=== PATIENT | male | born 1985 | race Caucasian/White ===

== ENCOUNTER → 2019-07-19 | Outpatient (CLI) | payer OTHER ==
[~2019-07-19] MED LIST: CYCL10 PO; ESCI20 PO; ESOM20 PO; HYDACE5 PO; IBUP800 PO; METPHE10 PO; MIRT30 PO; OMEP20ER PO; OXYACE5T PO; PROM25 PO; RXOXYACE PO; SERT25 PO; TRAM50; TRAM50 PO; Zofran Odt4 MG SL; Zofran Odt8 MG SL
[2019-07-19 18:53] LABS: BASOPHILS ABSOLUTE AUTO 0.02 K/mm3 (0.00-0.23); BASOPHILS PERCENT AUTO 0 % (0-2); EOSINOPHILS ABSOLUTE AUTO 0.02 K/mm3 (0.00-0.68); EOSINOPHILS PERCENT AUTO 0 % (0-6); Hematocrit 33.6 % (37.0-53.0); Hemoglobin 12.3 g/dL (13.5-17.5); IMMATURE GRAN ABSOLUTE AUTO 0.01 K/mm3 (0.00-0.10); IMMATURE GRAN PERCENT AUTO 0 % (0-1); LYMPHOCYTES ABSOLUTE AUTO 1.56 K/mm3 (0.84-5.20); LYMPHOCYTES PERCENT AUTO 28 % (21-46); MONOCYTES ABSOLUTE AUTO 0.22 K/mm3 (0.16-1.47); MONOCYTES PERCENT AUTO 4 % (4-13); Mean Corpuscular HGB 42.1 pg (26.0-34.0); Mean Corpuscular HGB Conc 36.6 g/dL (31.5-36.5); Mean Corpuscular Volume 115 fL (80-100); Mean Platelet Volume 11.1 fL (9.1-12.4); NEUTROPHILS ABSOLUTE AUTO 3.82 K/mm3 (1.96-9.15); NEUTROPHILS PERCENT AUTO 68 % (41-73); NRBC ABSOLUTE 0.02 K/mm3 (0.00-0.02); NRBC Auto 0.4 /100 WBC (0.0-0.2); Platelet Count 223 K/mm3 (150-400); RDW Coefficient Variation 11.8 % (11.7-14.2); RDW Standard Deviation 49.9 fL (35.1-46.3); Red Blood Cell Count 2.92 M/mm3 (4.30-5.90); White Blood Cell Count 5.65 K/mm3 (4.00-11.30)
== END ==
LOC: LAB SHORT 18:49 → LAB EV 18:49
PROVIDERS: Physician Assistant
DX: E86.0 Dehydration (principal)
CPT/HCPCS: 85025; 87086

== ENCOUNTER → 2020-06-26 | Outpatient (CLI) | payer OTHER | LOC: LAB SHORT 15:16 → PLD 15:16 | DX: D48.5 Neoplasm of uncertain behavior of skin (principal) | CPT/HCPCS: 88305 ==

== ENCOUNTER 2023-06-19 12:03 | Emergency (ER) | payer OTHER ==
[~2023-06-19] VITALS: Ht 182.9 cm; Wt 65.8 kg
[2023-06-19 12:44] LABS: BASOPHILS ABSOLUTE AUTO 0.03 K/mm3 (0.00-0.23); BASOPHILS PERCENT AUTO 0 % (0-2); EOSINOPHILS ABSOLUTE AUTO 0.02 K/mm3 (0.00-0.68); EOSINOPHILS PERCENT AUTO 0 % (0-6); Hematocrit 36.2 % (37.0-53.0); Hemoglobin 12.7 g/dL (13.5-17.5); IMMATURE GRAN ABSOLUTE AUTO 0.04 K/mm3 (0.00-0.10); IMMATURE GRAN PERCENT AUTO 0 % (0-1); LYMPHOCYTES ABSOLUTE AUTO 2.84 K/mm3 (0.84-5.20); LYMPHOCYTES PERCENT AUTO 28 % (21-46); MONOCYTES ABSOLUTE AUTO 0.47 K/mm3 (0.16-1.47); MONOCYTES PERCENT AUTO 5 % (4-13); Mean Corpuscular HGB 35.2 pg (26.0-34.0); Mean Corpuscular HGB Conc 35.1 g/dL (31.5-36.5); Mean Corpuscular Volume 100 fL (80-100); Mean Platelet Volume 10.3 fL (9.1-12.4); NEUTROPHILS ABSOLUTE AUTO 6.78 K/mm3 (1.96-9.15); NEUTROPHILS PERCENT AUTO 67 % (41-73); NRBC ABSOLUTE 0.03 K/mm3 (0.00-0.02); NRBC Auto 0.3 /100 WBC (0.0-0.2); Platelet Count 246 K/mm3 (150-400); RDW Coefficient Variation 14.9 % (11.7-14.2); RDW Standard Deviation 55.2 fL (35.1-46.3); Red Blood Cell Count 3.61 M/mm3 (4.30-5.90); White Blood Cell Count 10.18 K/mm3 (4.00-11.30)
[2023-06-19 12:57] LABS: Albumin/Globulin Ratio 0.9 (0.8-1.8); Bilirubin, Total 0.3 mg/dL (0.1-1.0); Bun/Creatinine Ratio 6.9 (12.0-20.0); Calcium, Blood 8.5 mg/dL (8.5-10.1); Creatinine, Blood 0.58 mg/dL (0.60-1.20); Globulin, Blood 3.4 g/dL (2.2-4.0); Total Protein, Blood 6.4 g/dL (6.4-8.2)
[2023-06-19] MEDS ORDERED: ONDA4 PO (18:01)
[2023-06-19] MEDS ORDERED: CEPH500 PO (18:19)
[2023-06-19] MEDS ORDERED: Bactrim Ds Tab1 EACH PO (18:19)
[2023-06-19 18:45] VITALS: BP 127/75
== END 2023-06-19 18:46 | disposition home or self-care (01) ==
LOC: ER 12:03
PROVIDERS: Student in an Organized Health Care Education/Training Program
DX: L02.11 Cutaneous abscess of neck (principal); F17.210 Nicotine dependence, cigarettes, uncomplicated; M19.90 Unspecified osteoarthritis, unspecified site; Z88.5 Allergy status to narcotic agent
CPT/HCPCS: 10060; 70491; 80053; 85025; 87070; 87205; 96374-59; 96375-59; 99284-25; A9270; J1885; J2060; J2405; Q9967

== ENCOUNTER 2024-04-09 20:44 | Emergency (ER) | payer OTHER ==
[~2024-04-09] VITALS: Ht 182.9 cm; Wt 61.2 kg
[~2024-04-09 20:44] MED LIST changes: +Bactrim Ds Tab1 EACH PO; +CEPH500 PO; +ONDA4 PO
[2024-04-09 20:52] VITALS: BP 109/73
[2024-04-09 20:57] LABS: BASOPHILS ABSOLUTE AUTO 0.01 K/mm3 (0.00-0.23); BASOPHILS PERCENT AUTO 0 % (0-2); EOSINOPHILS ABSOLUTE AUTO 0.01 K/mm3 (0.00-0.68); EOSINOPHILS PERCENT AUTO 0 % (0-6); Hematocrit 26.9 % (37.0-53.0); Hemoglobin 9.7 g/dL (13.5-17.5); IMMATURE GRAN ABSOLUTE AUTO 0.11 K/mm3 (0.00-0.10); IMMATURE GRAN PERCENT AUTO 1 % (0-1); LYMPHOCYTES ABSOLUTE AUTO 0.46 K/mm3 (0.84-5.20); LYMPHOCYTES PERCENT AUTO 3 % (21-46); MONOCYTES ABSOLUTE AUTO 0.48 K/mm3 (0.16-1.47); MONOCYTES PERCENT AUTO 4 % (4-13); Mean Corpuscular HGB 39.3 pg (26.0-34.0); Mean Corpuscular HGB Conc 36.1 g/dL (31.5-36.5); Mean Corpuscular Volume 109 fL (80-100); Mean Platelet Volume 9.6 fL (9.1-12.4); NEUTROPHILS ABSOLUTE AUTO 12.34 K/mm3 (1.96-9.15); NEUTROPHILS PERCENT AUTO 92 % (41-73); Platelet Count 144 K/mm3 (150-400); RDW Coefficient Variation 13.9 % (11.7-14.2); RDW Standard Deviation 55.5 fL (35.1-46.3); Red Blood Cell Count 2.47 M/mm3 (4.30-5.90); White Blood Cell Count 13.41 K/mm3 (4.00-11.30)
[2024-04-09] MEDS ORDERED: Metoclopramide HCl 5MG / ML 2ML Vial IV ONE (21:05)
[2024-04-09] MEDS ORDERED: Lactated Ringer's 1,000 ML IV ONE (21:05)
[2024-04-09 21:25] LABS: Albumin, Blood 2.9 g/dL (3.4-5.0); Albumin/Globulin Ratio 1.3 (0.8-1.8); Bilirubin, Total 1.2 mg/dL (0.1-1.0); Bun/Creatinine Ratio 9.8 (12.0-20.0); Calcium, Blood 8.3 mg/dL (8.5-10.1); Creatinine, Blood 0.51 mg/dL (0.60-1.20); Globulin, Blood 2.3 g/dL (2.2-4.0); Magnesium, Blood 1.1 mg/dL (1.6-2.4); Potassium, Blood 3.3 mmol/L (3.5-5.5); Total Protein, Blood 5.2 g/dL (6.4-8.2)
[2024-04-09] MEDS ORDERED: Magnesium Sulf 2 GM/Water 50ML 50 ML IV ONE (21:40)
[2024-04-09 21:44] LABS: Influenza A, PCR NEGATIVE (NEGATIVE); Influenza B, PCR NEGATIVE (NEGATIVE); Resp Syncytial Virus, PCR NEGATIVE (NEGATIVE); SARS-Cov-2 (COVID-19) PCR, MMC NEGATIVE (NEGATIVE)
[2024-04-09] MEDS ORDERED: Potassium Chloride 20 MEQ/15 ML UDC PO ONE (21:50)
[2024-04-09] MEDS ORDERED: METO5A PO (22:07)
== END 2024-04-09 22:49 | disposition home or self-care (01) ==
LOC: ER 20:44
PROVIDERS: Student in an Organized Health Care Education/Training Program
DX: E86.0 Dehydration (principal); R11.2 Nausea with vomiting, unspecified; D72.829 Elevated white blood cell count, unspecified; D64.9 Anemia, unspecified; E87.6 Hypokalemia; E83.42 Hypomagnesemia; G47.00 Insomnia, unspecified; Z88.8 Allergy status to other drugs, medicaments and biological substances
CPT/HCPCS: 0241U; 80053; 83735; 85025; A9270; J2765; J3475; J7120

== ENCOUNTER 2024-04-11 07:13 | Emergency (ER) | payer OTHER ==
[~2024-04-11] VITALS: Ht 182.9 cm; Wt 59.0 kg
[~2024-04-11 07:13] MED LIST changes: +METO5A PO
[2024-04-11] MEDS ORDERED: Ondansetron HCl 2 MG / ML 2ML Vial IV ONE (07:25)
[2024-04-11] MEDS ORDERED: NS 1,000 ML IV SCH (07:40)
[2024-04-11 07:41] LABS: Magnesium, Blood 1.7 mg/dL (1.6-2.4)
[2024-04-11] MEDS ORDERED: FAMO20 PO (07:51)
[2024-04-11] MEDS ORDERED: VITAMIN D310 MC4 PO (07:52)
[2024-04-11 08:03] LABS: BASOPHILS ABSOLUTE AUTO 0.01 K/mm3 (0.00-0.23); BASOPHILS PERCENT AUTO 0 % (0-2); EOSINOPHILS ABSOLUTE AUTO 0.01 K/mm3 (0.00-0.68); EOSINOPHILS PERCENT AUTO 0 % (0-6); Hematocrit 29.8 % (37.0-53.0); Hemoglobin 10.3 g/dL (13.5-17.5); IMMATURE GRAN ABSOLUTE AUTO 0.04 K/mm3 (0.00-0.10); IMMATURE GRAN PERCENT AUTO 1 % (0-1); LYMPHOCYTES ABSOLUTE AUTO 0.78 K/mm3 (0.84-5.20); LYMPHOCYTES PERCENT AUTO 12 % (21-46); MONOCYTES ABSOLUTE AUTO 0.26 K/mm3 (0.16-1.47); MONOCYTES PERCENT AUTO 4 % (4-13); Mean Corpuscular HGB 38.6 pg (26.0-34.0); Mean Corpuscular HGB Conc 34.6 g/dL (31.5-36.5); Mean Corpuscular Volume 112 fL (80-100); Mean Platelet Volume 10.6 fL (9.1-12.4); NEUTROPHILS ABSOLUTE AUTO 5.31 K/mm3 (1.96-9.15); NEUTROPHILS PERCENT AUTO 83 % (41-73); Platelet Count 142 K/mm3 (150-400); RDW Coefficient Variation 14.1 % (11.7-14.2); RDW Standard Deviation 58.2 fL (35.1-46.3); Red Blood Cell Count 2.67 M/mm3 (4.30-5.90); White Blood Cell Count 6.41 K/mm3 (4.00-11.30)
[2024-04-11 08:06] LABS: Albumin, Blood 3.1 g/dL (3.4-5.0); Albumin/Globulin Ratio 1.1 (0.8-1.8); Bilirubin, Total 0.8 mg/dL (0.1-1.0); Bun/Creatinine Ratio 18.3 (12.0-20.0); Calcium, Blood 9.1 mg/dL (8.5-10.1); Creatinine, Blood 0.6 mg/dL (0.60-1.20); Globulin, Blood 2.9 g/dL (2.2-4.0); Potassium, Blood 3.9 mmol/L (3.5-5.5)
[2024-04-11 08:31] VITALS: BP 103/61
[2024-04-11] MEDS ORDERED: PHENERGAN25 MG PR (09:07)
[2024-04-11] MEDS ORDERED: propofoL 100 ML IV ONE (17:50)
[2024-04-11] MEDS ORDERED: ACET325 PO (20:31)
[2024-04-11] MEDS ORDERED: ALPR.25 PO (20:32)
[2024-04-11] MEDS ORDERED: MECL12.5 PO (20:34)
== END 2024-04-11 09:23 | disposition home or self-care (01) ==
LOC: ER 07:13
PROVIDERS: Emergency Medicine
DX: R11.2 Nausea with vomiting, unspecified (principal); R19.7 Diarrhea, unspecified; E83.119 Hemochromatosis, unspecified; F12.90 Cannabis use, unspecified, uncomplicated; F10.90 Alcohol use, unspecified, uncomplicated; F17.200 Nicotine dependence, unspecified, uncomplicated; Z88.5 Allergy status to narcotic agent; Z79.899 Other long term (current) drug therapy
CPT/HCPCS: 80053; 83735; 85025; J2405; J2704; J7030

== ENCOUNTER 2024-04-11 17:00 | Inpatient (IN) | payer OTHER ==
[~2024-04-11] VITALS: Ht 177.8 cm; Wt 70.2 kg
[2024-04-11] VITALS (16 sets, daily range): BP systolic 81–172; BP diastolic 53–123
[~2024-04-11 17:00] MED LIST changes: +FAMO20 PO; +PHENERGAN25 MG PR; +VITAMIN D310 MC4 PO
[2024-04-11 17:13] LABS: Calcium, Ionized (POC) 1.02 mmol/L (1.10-1.46); Chloride (POC) 103 mmol/L (98-108); Creatinine (POC) 0.6 mg/dL (0.8-1.3); Glucose (ISTAT POC) 154 mg/dL (70-99); Hemoglobin (POC) 9.5 g/dL (13.5-17.5); Potassium (POC) 4.9 mmol/L (3.5-5.5); Sodium (POC) 131 mmol/L (135-148); Total CO2 (POC) 18 mmol/L (21-32)
[2024-04-11 17:19] LABS: Base Excess Venous -7.1 mmol/L; Bicarbonate Venous 19.4 mmol/L (24.0-30.0); PCO2 Venous 22.4 mmHg (38-42); pH Blood Venous 7.47 (7.34-7.37)
[2024-04-11 18:02] LABS: Acetaminophen, Random 4.7 ug/mL (10.0-30.0); Alanine Aminotransfer (ALT/SGP 137 U/L (12-78); Albumin, Blood 2.7 g/dL (3.4-5.0); Albumin/Globulin Ratio 1.1 (0.8-1.8); Alk Phos 82 U/L (50-136); Anion Gap 20 mmol/L (3-11); Aspartate Aminotrans (AST/SGOT 144 U/L (12-37); Bilirubin, Total 0.5 mg/dL (0.1-1.0); Blood Urea Nitrogen 12 mg/dL (8-24); Bun/Creatinine Ratio 18.2 (12.0-20.0); CO2, Blood 18 mmol/L (21-32); Calcium, Blood 8.5 mg/dL (8.5-10.1); Chloride, Blood 101 mmol/L (98-108); Creatinine, Blood 0.66 mg/dL (0.60-1.20); Ethanol (Alcohol), Blood, Med <3 mg/dL; Globulin, Blood 2.4 g/dL (2.2-4.0); Glomerular Filtration Rate 122 (60-); Glucose, Blood 164 mg/dL (70-99); Potassium, Blood 4.9 mmol/L (3.5-5.5); Sodium, Blood 134 mmol/L (136-145); Total Protein, Blood 5.1 g/dL (6.4-8.2)
[2024-04-11] MEDS ORDERED: NS 1,000 ML IV SCH ×2 (18:30→22:00)
[2024-04-11 18:31] LABS: Source, Urine Foley catheter
[2024-04-11 18:31] LABS: BASOPHILS ABSOLUTE AUTO 0.04 K/mm3 (0.00-0.23); BASOPHILS PERCENT AUTO 0 % (0-2); EOSINOPHILS ABSOLUTE AUTO 0.01 K/mm3 (0.00-0.68); EOSINOPHILS PERCENT AUTO 0 % (0-6); Hematocrit 24.8 % (37.0-53.0); IMMATURE GRAN ABSOLUTE AUTO 0.19 K/mm3 (0.00-0.10); IMMATURE GRAN PERCENT AUTO 2 % (0-1); LYMPHOCYTES ABSOLUTE AUTO 1.01 K/mm3 (0.84-5.20); LYMPHOCYTES PERCENT AUTO 8 % (21-46); MONOCYTES PERCENT AUTO 2 % (4-13); Mean Corpuscular HGB 39.6 pg (26.0-34.0); Mean Corpuscular HGB Conc 36.3 g/dL (31.5-36.5); Mean Corpuscular Volume 109 fL (80-100); NEUTROPHILS ABSOLUTE AUTO 10.78 K/mm3 (1.96-9.15); NEUTROPHILS PERCENT AUTO 88 % (41-73); NRBC ABSOLUTE 0.06 K/mm3 (0.00-0.02); NRBC Auto 0.5 /100 WBC (0.0-0.2); RDW Coefficient Variation 14.1 % (11.7-14.2); RDW Standard Deviation 55.8 fL (35.1-46.3); Red Blood Cell Count 2.27 M/mm3 (4.30-5.90); White Blood Cell Count 12.33 K/mm3 (4.00-11.30)
[2024-04-11 18:39] LABS: Bilirubin, Urine Neg (Neg); Blood, Urine 3+ (Neg); Color, Urine Yellow (P-Yellow); Glucose Qualitative, Urine Neg (Neg); Ketones, Urine 2+ (Neg); Leukocyte Esterase, Urine Neg (Neg); Nitrite, Urine Neg (Neg); Protein, Urine 1+ (Neg); Urobilinogen, Urine 2+ (Normal); pH, Urine 6.5 (5.0-8.0)
[2024-04-11] MEDS ORDERED: Cefepime HCl 2,000 MG in NS 100 ML IV ONE (18:45)
[2024-04-11] MEDS ORDERED: Dextrose 50% 50 ML Vial ONE ×2 (19:05→19:36)
[2024-04-11] MEDS ORDERED: Ondansetron HCl 2 MG / ML 2ML Vial IV PRN (19:05)
[2024-04-11] MEDS ORDERED: Lactated Ringer's 1,000 ML IV SCH (19:05)
[2024-04-11 19:06] LABS: International Normalized Ratio 1.28; Prothrombin Time Results 13.4 Sec (9.7-11.5)
[2024-04-11 19:06] LABS: Appearance, Urine Hazy (Clear)
[2024-04-11 19:07] LABS: Bacteria Mod /hpf; Mucus Light (0-Heavy); Squamous Epithelial Cells Rare /hpf (Few); White Blood Cells, Urine 0-2 /hpf (0-5)
[2024-04-11 19:10] LABS: U Amphetamine Screen Not Detected; U Barbituate Screen Not Detected; U Benzodiazapine Screen DETECTED; U Buprenorphine Screen Not Detected; U Cannabinoids Screen DETECTED; U Cocaine Screen Not Detected; U Methadone Screen Not Detected; U Methamphetamine Screen Not Detected; U Opiates Screen Not Detected; U Oxycodone Screen Not Detected; U Phencyclidine Screen Not Detected
[2024-04-11] MEDS ORDERED: propofoL 100 ML IV SCH (19:10)
[2024-04-11] MEDS ORDERED: Cetylpyridinium Chloride 1 EA MISC MT SCH (19:10)
[2024-04-11] MEDS ORDERED: Vancomycin HCL 1,500 MG in NS 250 ML IV ONE (19:10)
[2024-04-11] MEDS ORDERED: Dextrose 10% 500 ML IV SCH (19:15)
[2024-04-11] MEDS ORDERED: Dextrose 10% 1,000 ML IV SCH (19:15)
[2024-04-11 19:40] LABS: Mean Platelet Volume 11.4 fL (9.1-12.4); Platelet Count 152 K/mm3 (150-400)
[2024-04-11] MEDS ORDERED: Azithromycin 500 MG in NS 250 ML IV SCH (20:00)
[2024-04-11] MEDS ORDERED: Folic Acid 1 MG in NS 50 ML IV SCH (20:00)
[2024-04-11] MEDS ORDERED: Thiamine HCl 500 MG in NS 100 ML IV SCH (20:00)
[2024-04-11] MEDS ORDERED: Dextrose 50% 50 ML Syringe IV ONE ×2 (20:05)
[2024-04-11] MEDS ORDERED: ACET325 PO (20:31)
[2024-04-11] MEDS ORDERED: ALPR.25 PO (20:32)
[2024-04-11] MEDS ORDERED: MECL12.5 PO (20:34)
[2024-04-11] MEDS ORDERED: Lactulose 20 GM/30 ML UDC PT SCH (21:00)
[2024-04-11] MEDS ORDERED: Lactulose 200 GM/300 ML Enema 300ML BTL PR SCH (21:00)
[2024-04-11 21:12] LABS: SARS-Cov-2 (COVID-19) PCR, MMC NEGATIVE (NEGATIVE)
[2024-04-11] MEDS ORDERED: Nicotine 14 MG PATCH TOP SCH (21:45)
[2024-04-11] MEDS ORDERED: Midazolam HCl 1MG / ML 2ML Vial IM ONE (21:45)
[2024-04-11] MEDS ORDERED: Etomidate 2MG / ML 10ML Vial IV ONE (21:45)
[2024-04-11] MEDS ORDERED: Rocuronium Bromide 10 MG/ML 5ML Injection IV ONE (21:45)
[2024-04-11 21:59] LABS: Percent Saturation 55.6 % (20.0-50.0)
[2024-04-11] MEDS ORDERED: Artificial Tear Opth Oint 3.5 GM BOTHEYES PRN (22:00)
[2024-04-11] MEDS ORDERED: CefTRIAXone Sodium 1,000 MG in NS 100 ML IV SCH (22:00)
[2024-04-11] MEDS ORDERED: Heparin Sodium,Porcine 5,000 UNIT/0.5 ML SDV SC SCH (22:00)
[2024-04-11] MEDS ORDERED: NS 1,000 ML IV ONE (22:05)
[2024-04-11] MEDS ORDERED: Albumin (Human) 25gm/100ml 100 ML IV SCH (22:05)
[2024-04-11] MEDS ORDERED: Albumin (Human) 25gm/100ml 100 ML IV ONE (22:05)
[2024-04-11] MEDS ORDERED: Pantoprazole Sodium 40 MG Injection IV SCH (23:00)
[2024-04-12] VITALS (92 sets, daily range): BP systolic 52–141; BP diastolic 28–117
[2024-04-12] MEDS ORDERED: Hydrogen Peroxide 1.5 % Solution MT SCH ×2
[2024-04-12] MEDS ORDERED: Morphine Sulfate 4 MG/1 ML Injection IV PRN (00:10)
[2024-04-12] MEDS ORDERED: Azithromycin 500 MG in NS 250 ML IV SCH (01:00)
[2024-04-12] MEDS ORDERED: NS 500 ML IV ONE ×3 (02:10→04:20)
--- NOTE | 2024-04-12 02:33 | NUR ---
ASSUMPTION OF CARE/BLOCK CHARTING 1944: PT TRANSFERRED TO ICU VIA ER GURNEY, TRANSITIONED TO ICU BED VIA SLIDER SHEET. PT INTUBATED AND SEDATED, PROPOFOL INFUSING AT 30MCG/KG/MIN ON ARRIVAL TO ICU, TITRATED DOWN TO 15MCG/KG/MIN. PT NOT RESPONSIVE TO NOXIOUS STIMULI, DOES NOT MAKE PURPOSEFUL MOVEMENTS. HR 145 SINUS, MAP >65. VENT SETTINGS AC/VC 18/500/5/30%, OXYGEN SATURATION >95%. ABDOMEN SOFT, BOWEL TONES ACTIVE, OG TUBE IN PLACE CLAMPED. TEMP MASSEY IN PLACE PATENT DRAINING YELLOW URINE TO GRAVITY. PIV IN PLACE TO RAC, LAC AND LEFT HAND. PTS MOTHER AT THE BEDSIDE. 2129: PT MOVING ARMS, WITHDRAWING FROM PAINFUL STIMULI, PT DOES NOT OPEN EYES OR FOLLOW COMMANDS WHEN PROMPTED. PROPOFOL INCREASED TO 30MCG/KG/MIN 2152: POWERGLIDE PLACED, PROPFOL INCREASED TO 50MCG/KG/MIN IN INCREMENTS OF 5MCG/KG/MIN FOR RESTLESSNESS DURING LINE PLACEMENT. TITRATED SLOWLY BACK DOWN AFTER LINE PLACEMENT D/T HYPOTENSION. PROPOFOL INFUSING AT 35MCG/KG/MIN 2204: DR. ROBLES TO THE BEDSIDE TO EVALUATE PATIENT, ORDERS RECEIVED. 214: CALL PLACED TO DR. HAYNES REGARDING PT BLOOD PRESSURE WITH MAP <65. ORDERS RECEIVED.
--- NOTE | 2024-04-12 03:36 | NUR ---
PT UPDATE 0254; CALL PLACED TO DR. IVY PRADO PT CONTINUED HYPOTENSION, ORDERS RECEIVED. 0302: LEVOPHED INITIATED AT 4MCG/MIN FOR MAP OF 60. 0329: LEVOPHED INCREASED BY REGIONAL RECRUITER FROM 4MCG/MIN TO 8MCG/MIN FOR MAP OF 58. CARE CONTINUES.
[2024-04-12 03:37] LABS: BASOPHILS ABSOLUTE AUTO 0.01 K/mm3 (0.00-0.23); BASOPHILS PERCENT AUTO 0 % (0-2); EOSINOPHILS PERCENT AUTO 0 % (0-6); Hematocrit 20.7 % (37.0-53.0); Hemoglobin 7.2 g/dL (13.5-17.5); IMMATURE GRAN ABSOLUTE AUTO 0.11 K/mm3 (0.00-0.10); IMMATURE GRAN PERCENT AUTO 2 % (0-1); LYMPHOCYTES ABSOLUTE AUTO 1.43 K/mm3 (0.84-5.20); LYMPHOCYTES PERCENT AUTO 21 % (21-46); MONOCYTES ABSOLUTE AUTO 0.36 K/mm3 (0.16-1.47); MONOCYTES PERCENT AUTO 5 % (4-13); Mean Corpuscular HGB 39.3 pg (26.0-34.0); Mean Corpuscular HGB Conc 34.8 g/dL (31.5-36.5); Mean Corpuscular Volume 113 fL (80-100); Mean Platelet Volume 10.2 fL (9.1-12.4); NEUTROPHILS PERCENT AUTO 72 % (41-73); NRBC ABSOLUTE 0.03 K/mm3 (0.00-0.02); NRBC Auto 0.4 /100 WBC (0.0-0.2); Platelet Count 105 K/mm3 (150-400); RDW Coefficient Variation 14.5 % (11.7-14.2); Red Blood Cell Count 1.83 M/mm3 (4.30-5.90); White Blood Cell Count 6.71 K/mm3 (4.00-11.30)
[2024-04-12 03:51] LABS: PO2 Arterial 143 mmHg (80-100)
[2024-04-12 03:52] LABS: PCO2 Arterial 19.9 mmHg (35-45)
[2024-04-12 03:55] LABS: Albumin/Globulin Ratio 1.6 (0.8-1.8); Bilirubin, Total 0.7 mg/dL (0.1-1.0); Bun/Creatinine Ratio 19.3 (12.0-20.0); Calcium, Blood 7.5 mg/dL (8.5-10.1); Creatinine, Blood 0.83 mg/dL (0.60-1.20); Globulin, Blood 1.9 g/dL (2.2-4.0); Magnesium, Blood 1.8 mg/dL (1.6-2.4); Phosphorus, Blood 3.5 mg/dL (2.5-4.9); Potassium, Blood 4.3 mmol/L (3.5-5.5); Total Protein, Blood 4.9 g/dL (6.4-8.2)
[2024-04-12] MEDS ORDERED: Dextrose 10% 1,000 ML IV SCH (04:30)
[2024-04-12] MEDS ORDERED: Vancomycin HCL 1,000 MG in NS 250 ML IV SCH (05:00)
--- NOTE | 2024-04-12 05:15 | NUR ---
SHIFT SUMMARY PT CONTINUES TO REST IN BED, INTUBATED AND SEDATED. PROPOFOL INFUSING AT 35MCG/MG/MIN, PRECEDEX INFUSING AT 1MCG/KG/HR. RASS -3, PT OCCASIONALLY MOVES UPPER EXTREMITIES, WITHDRAWS UPPER EXTREMITIES TO NOXIOUS STIMULI. PT DOES NOT OPEN EYES OR FOLLOW COMMANDS WHEN PROMPTED. HR 120-140'S SINUS, LEVOPHED INFUSING AT 10MCG/MIN TO MAINTAIN MAP >65. VENT SETTINGS AC/VC 18/450/5/30%, OXYGEN SATURATION >95%. ABDOMEN SOFT, BOWEL TONES HYPOACTIVE. TEMP MASSEY IN PLACE WITH YELLOW OUTPUT. NO BM THIS SHIFT, OG TUBE IN PLACE CLAMPED. PIV IN PLACE TO RAC, LAC AND LEFT HAND. POWERGLIDE IN PLACE TO JAN. D 10 INFUSING AT 75MLS/HR, NS INFUSING AT 150MLS/HR. BED IN LOWEST POSTION, PTS MOM AT THE BEDSIDE. CARE CONTINUES.
[2024-04-12] MEDS ORDERED: Pantoprazole Sodium 40 MG Injection IV SCH (06:00)
[2024-04-12] MEDS ORDERED: Cetylpyridinium Chloride 1 EA MISC MT SCH (08:00)
[2024-04-12] MEDS ORDERED: NS 250 ML IV SCH (08:05)
[2024-04-12] MEDS ORDERED: Multivitamins 1 Tab PT SCH (09:00)
[2024-04-12] MEDS ORDERED: Heparin Sodium,Porcine 5,000 UNIT/0.5 ML SDV SC SCH (09:00)
[2024-04-12] MEDS ORDERED: Ipratropium/Albuterol SulF 2.5-0.5MG/3 ML Amp INH SCH (10:45)
[2024-04-12] MEDS ORDERED: LORazepam 2 MG/ML 1ML Injection IV PRN (11:15)
[2024-04-12 12:41] LABS: BASOPHILS PERCENT AUTO 0 % (0-2); EOSINOPHILS PERCENT AUTO 0 % (0-6); Hematocrit 19.9 % (37.0-53.0); Hemoglobin 7.1 g/dL (13.5-17.5); IMMATURE GRAN ABSOLUTE AUTO 0.05 K/mm3 (0.00-0.10); IMMATURE GRAN PERCENT AUTO 1 % (0-1); LYMPHOCYTES ABSOLUTE AUTO 1.82 K/mm3 (0.84-5.20); LYMPHOCYTES PERCENT AUTO 35 % (21-46); MONOCYTES ABSOLUTE AUTO 0.29 K/mm3 (0.16-1.47); MONOCYTES PERCENT AUTO 6 % (4-13); Mean Corpuscular HGB 39.9 pg (26.0-34.0); Mean Corpuscular HGB Conc 35.7 g/dL (31.5-36.5); Mean Corpuscular Volume 112 fL (80-100); Mean Platelet Volume 10.9 fL (9.1-12.4); NEUTROPHILS ABSOLUTE AUTO 3.12 K/mm3 (1.96-9.15); NEUTROPHILS PERCENT AUTO 59 % (41-73); NRBC ABSOLUTE 0.04 K/mm3 (0.00-0.02); NRBC Auto 0.8 /100 WBC (0.0-0.2); Platelet Count 96 K/mm3 (150-400); RDW Coefficient Variation 14.6 % (11.7-14.2); RDW Standard Deviation 59.4 fL (35.1-46.3); Red Blood Cell Count 1.78 M/mm3 (4.30-5.90); White Blood Cell Count 5.28 K/mm3 (4.00-11.30)
--- NOTE | 2024-04-12 13:21 | NUR ---
REASSESSMENT PT CONTINUES ON SEDATION WHILE INTUBATED. HE HAD A PICC LINE PLACED THIS MORNING SO LEVOPHED HAS BEEN TITRATED UP TO KEEP MAP GREATER THAN 65. HR REMAINS ST WITH RATE IN THE 1 TEENS. SEDATION WAS DIFFICULT THIS MORNING WITH PT'S LOW BP, BUT PT'S MOTHER EMPHASIZED THAT COMFORT WAS A HIGH PRIORITY FOR HER AND PT. PT IS RESTING COMFORTABLY NOW. RR IS STILL IN THE 30S, BUT PT IS CALM AND BREATHING APPEARS LESS LABORED. LUNGS WERE VERY COARSE THIS MORNING, BUT HAVE CLEARED SINCE. ABDOMEN IS FIRM, DOESN'T APPEAR TO BE TENDER. BT HYPOACTIVE. OG HAD SCANT AMT OF LIGHT GREEN FLUID, BUT HAS BEEN CLAMPED FOR MOST OF THE MORNING FOR MEDICATIONS. MASSEY WITH YELLOW URINE. PT'S MOM HAS BEEN AT THE BEDSIDE AND UPDATED THROUGHOUT THE MORNING.
--- NOTE | 2024-04-12 17:18 | NUR ---
SHIFT SUMMARY PT REMAINED INTUBATED AND SEDATED THIS SHIFT. HE HAD A 45 MINUTES SEDATION VACATION THIS AFTERNOON DURING WHICH PT WOULD NOT RESPOND TO HIS COMMANDS. HE WAS MOVING ALL EXTREMITIES, BUT BECAME AGITATED SO SEDATION WAS RESTARTED. HIS R PUPIL WAS SLIGHTLY BIGGER THAN HIS L THIS MORNING, BUT THEY ARE EQUAL THIS AFTERNOON. LUNGS ARE CLEAR THIS AFTERNOON. SINUS TACH WITH RATE IN THE 1 TEENS. PT HAD FEVER WITH TMAX 100.9F THIS SHIFT, CURRENTLY DOWN TO 99.9F. ABDOMEN REMAINS DISTENDED, NO BM SO FAR THIS SHIFT. TUBE FEED STARTED AT 10ML/HR THIS EVENING. GLUCOSE UP TO 170S TUBE FEED WAS STARTED. SPOKE WITH DR. MARI AND RECEIVED ORDER TO TURN D10 DOWN TO 25ML/HR. PT'S MOTHER HAS REMAINED AT THE BEDSIDE THIS SHIFT AND HAS BEEN UPDATED.
[2024-04-12] MEDS ORDERED: CefTRIAXone Sodium 1,000 MG in NS 100 ML IV SCH (21:00)
[2024-04-12 21:01] LABS: Vancomycin, Trough 37.3 ug/mL (5.0-10.0)
--- NOTE | 2024-04-12 22:32 | NUR ---
ASSUMPTION OF CARE: I assumed care of pt at approximately 1900. Family was in room at the time. They advised of patient's typical pain level and that his bones and skin are very fragile. Also confirmed no compressions for pt. Pt is sedated with propofol and precedex and intubated. Cisse catheter in place draining to gravity without issue. Confirmed drip rates and lines with offgoing RN. SPO2 >95% and MAP >65.
[2024-04-13] VITALS (96 sets, daily range): BP systolic 85–124; BP diastolic 61–91
[2024-04-13 03:34] LABS: BASOPHILS ABSOLUTE AUTO 0.01 K/mm3 (0.00-0.23); BASOPHILS PERCENT AUTO 0 % (0-2); EOSINOPHILS PERCENT AUTO 0 % (0-6); Hematocrit 20.1 % (37.0-53.0); Hemoglobin 7.1 g/dL (13.5-17.5); IMMATURE GRAN ABSOLUTE AUTO 0.03 K/mm3 (0.00-0.10); IMMATURE GRAN PERCENT AUTO 1 % (0-1); LYMPHOCYTES ABSOLUTE AUTO 1.26 K/mm3 (0.84-5.20); LYMPHOCYTES PERCENT AUTO 33 % (21-46); MONOCYTES ABSOLUTE AUTO 0.19 K/mm3 (0.16-1.47); MONOCYTES PERCENT AUTO 5 % (4-13); Mean Corpuscular HGB 39.2 pg (26.0-34.0); Mean Corpuscular HGB Conc 35.3 g/dL (31.5-36.5); Mean Corpuscular Volume 111 fL (80-100); Mean Platelet Volume 10.4 fL (9.1-12.4); NEUTROPHILS ABSOLUTE AUTO 2.39 K/mm3 (1.96-9.15); NEUTROPHILS PERCENT AUTO 62 % (41-73); NRBC ABSOLUTE 0.03 K/mm3 (0.00-0.02); NRBC Auto 0.8 /100 WBC (0.0-0.2); Platelet Count 97 K/mm3 (150-400); RDW Coefficient Variation 14.5 % (11.7-14.2); Red Blood Cell Count 1.81 M/mm3 (4.30-5.90); White Blood Cell Count 3.88 K/mm3 (4.00-11.30)
[2024-04-13 03:46] LABS: PO2 Arterial 141 mmHg (80-100); pH Blood Arterial 7.33 (7.35-7.45)
[2024-04-13 03:52] LABS: International Normalized Ratio 1.45; Magnesium, Blood 1.7 mg/dL (1.6-2.4); Prothrombin Time Results 15.1 Sec (9.7-11.5)
[2024-04-13 03:53] LABS: Alanine Aminotransfer (ALT/SGP 498 U/L (12-78); Albumin/Globulin Ratio 1.7 (0.8-1.8); Alk Phos 67 U/L (50-136); Anion Gap 18 mmol/L (3-11); Aspartate Aminotrans (AST/SGOT 857 U/L (12-37); Bilirubin, Total 0.6 mg/dL (0.1-1.0); Blood Urea Nitrogen 15 mg/dL (8-24); Bun/Creatinine Ratio 11.8 (12.0-20.0); CO2, Blood 12 mmol/L (21-32); Calcium, Blood 7.7 mg/dL (8.5-10.1); Chloride, Blood 111 mmol/L (98-108); Creatinine, Blood 1.27 mg/dL (0.60-1.20); Globulin, Blood 1.8 g/dL (2.2-4.0); Glomerular Filtration Rate 74 (60-); Glucose, Blood 151 mg/dL (70-99); Phosphorus, Blood 1.2 mg/dL (2.5-4.9); Potassium, Blood 2.5 mmol/L (3.5-5.5); Sodium, Blood 138 mmol/L (136-145); Total Protein, Blood 4.8 g/dL (6.4-8.2); Vancomycin, Random 28.6 ug/mL
[2024-04-13] MEDS ORDERED: Potassium Phosphate Dibasic 30 MM in NS 500 ML IV ONE (04:55)
--- NOTE | 2024-04-13 05:38 | NUR ---
SHIFT SUMMARY: Pt remained sedated on Propofol and Precedex gtt throughout shift. Pt withdrew from stimuli during suction and bed bath, medicated per EMAR. Soft restraints still in place and needed, he pulls against them at times. Levophed is down to 6mcg/min with a MAP >70. Pt is in sinus rhythm with a rate in the 90's, improved from the tachycardia at the start of the shift. His SPO2 is 100% on vent. He has a patent powerglid and PICC with dressing changes to both during shift. Cisse cath is draining to gravity, appropriate urine output. Potassium phosphate is now infusing per low potassium, phos, and sodium. TF is @ 10ml/hr. Abdomen distended and firm, no BM during shift. Bowel tones are present.
[2024-04-13] MEDS ORDERED: Nystatin 100,000 Unit/GM CREAM 15 GM TOP SCH (09:25)
[2024-04-13] MEDS ORDERED: Miconazole Nitrate 2% 85 GM PWD TOP SCH (09:25)
[2024-04-13] MEDS ORDERED: Cefepime HCl 1,000 MG in NS 100 ML IV SCH (10:15)
[2024-04-13] MEDS ORDERED: Hydrocortisone Sod Succinate 100 MG Vial IV SCH (11:00)
[2024-04-13 12:37] LABS: Bun/Creatinine Ratio 11.2 (12.0-20.0); Calcium, Blood 8.2 mg/dL (8.5-10.1); Creatinine, Blood 1.07 mg/dL (0.60-1.20); Phosphorus, Blood 2.6 mg/dL (2.5-4.9); Potassium, Blood 2.7 mmol/L (3.5-5.5)
--- NOTE | 2024-04-13 12:43 | NUR ---
PT EXTUBATED.... PT EXTUBATED TO 2L NC AT 1245. PT'S VS STABLE AT THE TIME OF EXTUBATION.
[2024-04-13] MEDS ORDERED: Potassium Chl 10MEQ/Water100ML 100 ML IV SCH (13:30)
[2024-04-13 14:43] LABS: Vancomycin, Random 18.9 ug/mL
[2024-04-13 15:31] LABS: Vancomycin, Trough 18.4 ug/mL (5.0-10.0)
[2024-04-13] MEDS ORDERED: Vancomycin HCL 750 MG in NS 250 ML IV SCH (16:00)
--- NOTE | 2024-04-13 18:36 | NUR ---
Summary. Pt rested in bed this shift. Much improved. Extubated at 1245 to 2 L/NC, able to take oxygen off at 1430. Levophed titrated off this afternoon, see flowsheet. Pt alert, remains confused at times. Mother at bedside all shift. See chart for further details.
[2024-04-13] MEDS ORDERED: Lactobacil 2-S.Thermo-Bifido 1 1 Cap PT SCH (21:00)
--- NOTE | 2024-04-13 21:34 | NUR ---
ASSUMED CARE AT 1900 PATIENT IS ALERT AND ORIENTED TO SELF AND YEAR ONLY, NEEDS CONSTANT REORIENTATION. PATIENT HAVING HALLUCINATIONS AND SEEING PEOPLE IN HIS ROOM, AND CONSTANTLY PULLING AT THINGS. PRECEDEX STARTED. SP02 97% ON RA, DENIES SOB. HR ST 103, BP STABLE. TEMP MASSEY PATENT AND DRAINING TO GRAVITY. PATIENT REPOSITIONED. CALL LIGHT IN REACH
[2024-04-14] VITALS (63 sets, daily range): BP systolic 73–135; BP diastolic 62–102
[2024-04-14 04:38] LABS: BASOPHILS PERCENT AUTO 0 % (0-2); EOSINOPHILS PERCENT AUTO 0 % (0-6); Hemoglobin 6.3 g/dL (13.5-17.5); IMMATURE GRAN ABSOLUTE AUTO 0.04 K/mm3 (0.00-0.10); IMMATURE GRAN PERCENT AUTO 1 % (0-1); LYMPHOCYTES PERCENT AUTO 20 % (21-46); MONOCYTES ABSOLUTE AUTO 0.35 K/mm3 (0.16-1.47); MONOCYTES PERCENT AUTO 8 % (4-13); Mean Corpuscular HGB 39.4 pg (26.0-34.0); Mean Corpuscular Volume 113 fL (80-100); Mean Platelet Volume 11.4 fL (9.1-12.4); NEUTROPHILS ABSOLUTE AUTO 3.17 K/mm3 (1.96-9.15); NEUTROPHILS PERCENT AUTO 71 % (41-73); NRBC ABSOLUTE 0.02 K/mm3 (0.00-0.02); NRBC Auto 0.4 /100 WBC (0.0-0.2); Platelet Count 85 K/mm3 (150-400); White Blood Cell Count 4.46 K/mm3 (4.00-11.30)
[2024-04-14 05:03] LABS: Albumin, Blood 2.7 g/dL (3.4-5.0); Albumin/Globulin Ratio 1.2 (0.8-1.8); Bilirubin, Total 1.4 mg/dL (0.1-1.0); Bun/Creatinine Ratio 13.6 (12.0-20.0); Calcium, Blood 8.5 mg/dL (8.5-10.1); Creatinine, Blood 0.66 mg/dL (0.60-1.20); Globulin, Blood 2.2 g/dL (2.2-4.0); Total Protein, Blood 4.9 g/dL (6.4-8.2)
[2024-04-14] MEDS ORDERED: Potassium Chl 20MEQ/Water100ML 100 ML IV ONE (05:50)
--- NOTE | 2024-04-14 06:02 | NUR ---
SHIFT SUMMARY PATIENT REMAINED CONFUSED AND HAVING HALLUCINATIONS, IMPROVED SLIGHTLY ON THE PRECEDEX AND PATIENT WAS ABLE TO SLEEP OF AND ON. OCCASIONALLY PULLS AT LINES AND CORDS, ABLE TO REDIRECT. PRECEDEX TITRATED OF THIS AM, PATIENT WAKES TO VERBAL STIMULI AND IS ORIENTED TO SELF. SP02 94% ON RA, PATIENT DENIES SOB, LS CLEAR. HR SR 90s. BP STABLE. TEMP MASSEY PATENT AND DRAINING TO GRAVITY. PATIENT TOLERATED MEDS WITH APPLESAUCE AND SMALL SIPS OF WATER. CLLED DR. MARI REGARDING AM LABS, ORDERS TO REPLACE POTASSIUM AND PRBCs THIS AM.
[2024-04-14] MEDS ORDERED: NS 500 ML IV SCH (07:40)
[2024-04-14] MEDS ORDERED: Ipratropium/Albuterol SulF 2.5-0.5MG/3 ML Amp INH PRN (08:30)
--- NOTE | 2024-04-14 18:47 | NUR ---
Summary. Pt continues to make slow improvement. Up to side of bed with OT and PT. Able to tolerate more PO intake, pt declining regular food but is able to drink ensure w/o difficulty. Mother at bedside this shift. Pt had multiple small liquid bowel movements this shift. Bed bath complete. No acute events, see chart for further details.
--- NOTE | 2024-04-14 20:00 | NUR ---
ASSESSMENT/ASSUMED CARE PT SITTING UP IN BED WITH MOTHER AT BEDSIDE. C/O PAIN WITH ANY MOVEMENT/ REFUSING PAIN MEDS. LUNGS CLEAR BUT DECREASED IN THE BASES ON ROOMAIR. PT WITH PRODUCTIVE COUGH THICK YELLOW/BROWN SPUTUM MODERATE AMT. SPO2 DOWN TO 85% WITH COUGHING, PLACED ON 2 LITER O2 VIA NC TO RECOVER. HEART RATE REGULAR SINUS TACHY IN THE 110'S. BP STABLE. EDEMA NOTED TO BILAT LOWER EXT. BT+HYPERACTIVE. DENIES M/V AT THIS TIME. TAKING PO FLUIDS. CBG 105. MASESY CATH PATENT DRAINING YELLOW URINE. PICC LINE TO RIGHT UPPER ARM WITH NS AT 10 ML/HR. DRSG INTACT, SITE CLEAR. POWER GLIDE TO LEFT UPPER ARM SALINE LOCKED. ABLE TO DRAW BLOOD AND FLUSH WITHOUT DIFFICULTY. REPOSITIONED AND MELLO CARE DONE. PT REPORTS DOUBLE VISION, WAS REPORTED TO DR MARI BY DAY SHIFT RN. PT ANSWERING QUESTIONS APPROP. DENIES HALLUCINATIONS.
[2024-04-14] MEDS ORDERED: Famotidine 20 MG Tab PO SCH (21:00)
--- NOTE | 2024-04-14 22:01 | NUR ---
PT REPOSITIONED MORE ONTO LEFT SIDE WITH 2 PILLOWS BEHIND BACK. MED WITH ATIVAN FOR ANXIETY. TALKED WITH PT AND MOTHER REGARDING PAIN MEDS. PT VERY PAINFUL WITH REPOSITIONING. WILL GIVE ATIVAN FOR NOW, MAY TRY MORPHINE IF ATIVAN DOESN'T HELP
[2024-04-14] MEDS ORDERED: D5W-1/2NS 1,000 ML IV SCH (23:45)
--- NOTE | 2024-04-14 23:46 | NUR ---
BLOOD GLUCOSE DECREASED TO 85, CALL TO DR HAYNES REGARDING DECREASE IN BLOOD GLUCOSE. D5 1/2 NS AT 75 ML/HR STARTED. PT MED WITH MORPHINE FOR PAIN. REPOSITIONED
[2024-04-15] VITALS (37 sets, daily range): BP systolic 112–128; BP diastolic 74–89
[2024-04-15 03:12] LABS: BASOPHILS ABSOLUTE AUTO 0.01 K/mm3 (0.00-0.23); BASOPHILS PERCENT AUTO 0 % (0-2); EOSINOPHILS ABSOLUTE AUTO 0.01 K/mm3 (0.00-0.68); EOSINOPHILS PERCENT AUTO 0 % (0-6); Hematocrit 21.6 % (37.0-53.0); Hemoglobin 7.8 g/dL (13.5-17.5); IMMATURE GRAN ABSOLUTE AUTO 0.14 K/mm3 (0.00-0.10); IMMATURE GRAN PERCENT AUTO 2 % (0-1); LYMPHOCYTES ABSOLUTE AUTO 1.65 K/mm3 (0.84-5.20); LYMPHOCYTES PERCENT AUTO 22 % (21-46); MONOCYTES ABSOLUTE AUTO 0.68 K/mm3 (0.16-1.47); MONOCYTES PERCENT AUTO 9 % (4-13); Mean Corpuscular HGB 36.8 pg (26.0-34.0); Mean Corpuscular HGB Conc 36.1 g/dL (31.5-36.5); Mean Platelet Volume 10.6 fL (9.1-12.4); NEUTROPHILS ABSOLUTE AUTO 5.08 K/mm3 (1.96-9.15); NEUTROPHILS PERCENT AUTO 67 % (41-73); NRBC ABSOLUTE 0.04 K/mm3 (0.00-0.02); NRBC Auto 0.5 /100 WBC (0.0-0.2); Platelet Count 108 K/mm3 (150-400); RDW Coefficient Variation 21.2 % (11.7-14.2); RDW Standard Deviation 78.1 fL (35.1-46.3); Red Blood Cell Count 2.12 M/mm3 (4.30-5.90); White Blood Cell Count 7.57 K/mm3 (4.00-11.30)
[2024-04-15 03:13] LABS: Mean Corpuscular Volume 102 fL (80-100)
[2024-04-15 03:29] LABS: Magnesium, Blood 1.6 mg/dL (1.6-2.4)
[2024-04-15 04:00] LABS: Albumin, Blood 2.5 g/dL (3.4-5.0); Albumin/Globulin Ratio 1.1 (0.8-1.8); Bilirubin, Total 1.2 mg/dL (0.1-1.0); Bun/Creatinine Ratio 10.5 (12.0-20.0); Calcium, Blood 8.8 mg/dL (8.5-10.1); Creatinine, Blood 0.47 mg/dL (0.60-1.20); Globulin, Blood 2.3 g/dL (2.2-4.0); Phosphorus, Blood 1.1 mg/dL (2.5-4.9); Potassium, Blood 2.3 mmol/L (3.5-5.5); Total Protein, Blood 4.8 g/dL (6.4-8.2)
[2024-04-15] MEDS ORDERED: Potassium Phosphate Dibasic 30 MM in Dextrose 5% 500 ML IV ONE (04:15)
--- NOTE | 2024-04-15 05:15 | NUR ---
SHIFT SUMMARY PT RESTING QUIETLY AT THIS TIME WITH MOTHER AT BEDSIDE. PT MED WITH ATIVAN FOR ANXIETY ONCE DURING THE NIGHT. PT VERY PAINFUL WITH ANY MOVEMENT. MED WITH MORHINE 2MG TWICE DURING THE NIGHT WITH IMPROVED PAIN CONTROL. LUNGS CONT CLEAR BUT DECREASED. O2 NEEDS HAVE INCREASE DURING THE NIGHT FROM ROOMAIR TO 11 LITERS VIA OXYMASK TO KEEP SPO2 GREATER THAN 90%. CHEST XRAY DONE THIS AM AND DR HAYNES REVIEWED. POSSIBLE CT OF CHEST THIS AM. HEART RATE CONT TACHY 100-110'S. BP STABLE. TEMP 100.1 DURING THE NIGHT. PT REPOSITIONED Q2HR. KPHOS INFUSING. REPORT TO ON COMING NURSE
--- NOTE | 2024-04-15 07:37 | NUR ---
CAME ON SHIFT, BSR. MOTHER AT BEDSIDE, STATED THAT TEGAN WOULD LIKE NO FURTHER TREATMENT. CALL MADE TO AND IN REGARDS TO UPDATE. PT HAS TAKEN OFF HIS OXYGEN, MOTHER ASKED FOR IT NOT TO BE REPLACED. PT'S SATS 80'S, BREATHING SHALLOW AND RAPID. WARM TO THE TOUCH, IV'S INFUSING VIA PICC IN [place], ASKED THAT NO FURTHER MEDICATION OR "TREATMENTS" BE DONE. PT ASKED FOR "NO POKES". MEDICATED WITH MORPHINE PER OCT. DAD JUST ARRIVED.
--- NOTE | 2024-04-15 07:47 | NUR ---
UPDATE GIVEN TO VIA PHONE CALL.
[2024-04-15] MEDS ORDERED: Morphine Sulfate 20 MG/1ML 1 ML Oral Syringe SL PRN (07:55)
--- NOTE | 2024-04-15 08:35 | NUR ---
Spiritual Care Visit. Pt. is resting but is not responsive. Pts. mom has been at bedside throughout his stay. Pts. father is also present. Facilitated an update of the Pts. condition and vewrbalized that the Pt. has decided to go with comfort measures, though no formal ortders have been made. This baseball umpire for little league left a message with Palliative care to check on Pt. and will check in with family. Mom verbalized gratitude for the spiritual care visit. Pts. nurse is updated. Note: Pts. mom is one of our house supervisors at [employer] [employer].
[2024-04-15] MEDS ORDERED: Atropine Sulfate 1% Opth Soln 2ML BTL SL PRN (08:50)
[2024-04-15] MEDS ORDERED: Morphine Sulfate 10 MG/ML 1MLSYR IV PRN (08:50)
[2024-04-15] MEDS ORDERED: Haloperidol Lactate Inj. 5 MG/ML Injection IV PRN ×3 (08:50→15:50)
[2024-04-15] MEDS ORDERED: Scopolamine Hydrobromide Patch TOP PRN (08:50)
[2024-04-15] MEDS ORDERED: HYDROmorphone HCl/Pf 1MG SYR IV PRN (08:50)
--- NOTE | 2024-04-15 09:19 | NUR ---
CHAPLAIN LAUREANO HAS VISITED, NOW PALLIATIVE RN, RAE IN WITH ALEXEY. PT IS RESTING QUIETLY, WAS REPOSITIONED AFTER MEDICATION. MASSEY TO GRAVITY DRAINAGE WITH EVEN RESPIRATIONS.
[2024-04-15] MEDS ORDERED: Artificial Tear Opth Oint 3.5 GM BOTHEYES PRN (09:40)
--- NOTE | 2024-04-15 10:19 | NUR ---
"Spiriual care | Comfort Care follow up Pt. is resting and mom is at bedside and welcmoes my visit. Mom is supportive and gently caring for her son. Mom requests that I pray with the Pt. Prayed for both Pt. and family. Mom displays evidence of gratitude. Will remain close and available to the Pt. and family."
[2024-04-15] MEDS ORDERED: Nicotine 14 MG PATCH TOP ONE (10:55)
--- NOTE | 2024-04-15 11:57 | NUR ---
Met with pt and his mom this morning. The pt stated to his mom today, "I don't think this is a fight I can win. I'm like a dog chasing my tail." We reviewed comfort care, and pt states this is what he wants. Dr. Chamberlain arrived at pt's bedside during this conversation. Pt appears comfortable at this time, and pt's mom verbalizes appreciation for the support. Palliative care will remain involved.
--- NOTE | 2024-04-15 12:59 | NUR ---
TEGAN HAS BEEN QUIETLY RESTING, HE DENIES ANY PAIN OR DISCOMFORT WHEN QUESTIONED. HE WILL TWITCH AND STARTLE, TO WHICH HIS MOM ASKS FOR MEDICATION. HALDOL GIVEN PT DENIED PAIN. WARM TO THE TOUCH, SHEET ON, MOM COVERED HIM WITH HIS BLANKET. MASSEY TO GRAVITY DRAINAGE. SATS REMAIN IN THE 70S.
--- NOTE | 2024-04-15 16:19 | NUR ---
"Spiritual Care | Comfort Care. Pt. is comfort care. Mother is at bedside. Nurse Johnna is present. Prayer is requested for the family. Prayed with mom and nurse. Mom verbalized gratitude for the spiritual care visit. Will remain available to Pt. and family."
--- NOTE | 2024-04-15 18:40 | NUR ---
TEGAN HAS NO LONGER BEEN RESPONDING TO STIMULI, HE WAS ANSWERING TO VOICE AND TO TOUCH UNTIL ABOUT 1600. HE THEN WAS MORE RELAXED IN HIS JOINTS AND ALLOWED SOUNDS AND VOICES TO NOT STARTLE HIM. HIS BREATHING CONTINUES IN THE TEEN'S WITH ABDOMINAL EFFORT. SATS REMAIN LESS THAN 50%. HE WAS TURNED AND CLEANED FROM SMALL BOWEL MOVEMENT AND REPOSITIONED WITH MINIMAL RESPONSE, EYES DID OPEN AND SOME GRUNTING SOUNDS WERE MADE. MORE AUDIBLE GURGLING, GOOD ORAL CARE AND SUCTIONING PERFORMED. HEART RATE REMAINS IN THE 130'S, SLOWING FROM MID 140S. WILL CONTINUE WITH PLAN OF CARE AND MEDICATE FREQUENTLY.
--- NOTE | 2024-04-16 07:14 | NUR ---
LATE ENTRY: PT MEDICATED WITH MORPHINE 4MG IV AT 181 WITH MOM, NEENA GAYTAN RN, AND SOPHIE SHIN RN WITNESSES. CARE WAS CONTINUED WITH THE PATIENT AND IT WAS NOTED THAT THE SCREEN HAD TIMED OUT AND IT WAS NOT RECORDED ON THE OCT. THE MEDICATION WAS WASTED WITH JOHN KERN RN.
== END 2024-04-15 19:55 | DRG 871 ==
LOC: ER 17:00 → ICUE 19:04
PROVIDERS: Family Medicine; Internal Medicine Critical Care Medicine; Nurse Practitioner Acute Care; Student in an Organized Health Care Education/Training Program; ADMIT Student in an Organized Health Care Education/Training Program
PROC: 0T9B70Z Drainage of Bladder with Drainage Device, Via Natural or Artificial Opening (ICD-10-PCS; principal; 2024-04-11)
PROC: 5A1945Z Respiratory Ventilation, 24-96 Consecutive Hours (ICD-10-PCS; 2024-04-11)
PROC: 0DH67UZ Insertion of Feeding Device into Stomach, Via Natural or Artificial Opening (ICD-10-PCS; 2024-04-11)
PROC: 0BH17EZ Insertion of Endotracheal Airway into Trachea, Via Natural or Artificial Opening (ICD-10-PCS; 2024-04-11)
PROC: HZ2ZZZZ Detoxification Services for Substance Abuse Treatment (ICD-10-PCS; 2024-04-11)
PROC: 30233J1 Transfusion of Nonautologous Serum Albumin into Peripheral Vein, Percutaneous Approach (ICD-10-PCS; 2024-04-11)
PROC: 3E03329 Introduction of Other Anti-infective into Peripheral Vein, Percutaneous Approach (ICD-10-PCS; 2024-04-11)
PROC: 4A133R1 Monitoring of Arterial Saturation, Peripheral, Percutaneous Approach (ICD-10-PCS; 2024-04-12)
PROC: 3E033XZ Introduction of Vasopressor into Peripheral Vein, Percutaneous Approach (ICD-10-PCS; 2024-04-12)
PROC: 02HV33Z Insertion of Infusion Device into Superior Vena Cava, Percutaneous Approach (ICD-10-PCS; 2024-04-13)
PROC: 30233N1 Transfusion of Nonautologous Red Blood Cells into Peripheral Vein, Percutaneous Approach (ICD-10-PCS; 2024-04-14)
DX: A41.9 Sepsis, unspecified organism (principal); G92.8 Other toxic encephalopathy; J96.01 Acute respiratory failure with hypoxia; I50.21 Acute systolic (congestive) heart failure; I42.6 Alcoholic cardiomyopathy; E87.20 Acidosis, unspecified; I47.20 Ventricular tachycardia, unspecified; E87.3 Alkalosis; E87.1 Hypo-osmolality and hyponatremia; E27.40 Unspecified adrenocortical insufficiency; E72.20 Disorder of urea cycle metabolism, unspecified; Z51.5 Encounter for palliative care; Z66 Do not resuscitate; K76.82 Hepatic encephalopathy; E83.110 Hereditary hemochromatosis; R65.20 Severe sepsis without septic shock; K70.30 Alcoholic cirrhosis of liver without ascites; I11.0 Hypertensive heart disease with heart failure; K70.10 Alcoholic hepatitis without ascites; K76.0 Fatty (change of) liver, not elsewhere classified; M81.0 Age-related osteoporosis without current pathological fracture; F90.9 Attention-deficit hyperactivity disorder, unspecified type; F10.20 Alcohol dependence, uncomplicated; E16.2 Hypoglycemia, unspecified; M19.90 Unspecified osteoarthritis, unspecified site; G47.00 Insomnia, unspecified; F12.90 Cannabis use, unspecified, uncomplicated; D53.9 Nutritional anemia, unspecified; F32.A Depression, unspecified; G62.9 Polyneuropathy, unspecified; F17.210 Nicotine dependence, cigarettes, uncomplicated; Z98.890 Other specified postprocedural states; Z79.899 Other long term (current) drug therapy; Z71.41 Alcohol abuse counseling and surveillance of alcoholic; Z71.51 Drug abuse counseling and surveillance of drug abuser; Y90.0 Blood alcohol level of less than 20 mg/100 ml; Z88.5 Allergy status to narcotic agent; R11.2 Nausea with vomiting, unspecified; R19.7 Diarrhea, unspecified; E83.119 Hemochromatosis, unspecified
CPT/HCPCS: 31500; 36415; 36430; 36569; 36600; 51702; 70450; 71045; 76536; 76705; 80047; 80048; 80053; 80202; 80320; 81001; 82140; 82330; 82533; 82550; 82728; 82803; 82947; 83036; 83540; 83550; 83605; 83690; 83735; 83880; 84100; 84484; 85014; 85025; 85610; 85730; 86850; 86900; 86901; 86923; 87040; 87070; 87077; 87086; 87186; 87205; 87449; 93005; 93010; 93306; 94002; 94003; 94640; 94762; 96360-59; 96361; 96374; 97110; 97162; 97166; 97530; 99284-25; 99285-25; A9270; C1751; G0480; J0456; J0692; J0696; J1170; J1630; J1644; J1720; J2060; J2250; J2270; J2405; J2470; J2704; J3370; J3411; J3480; J7030; J7040; J7042; J7050; J7060; J7120; J7799; P9016; P9047; U0002